=== PATIENT | male | born 1950 | race Caucasian/White ===

== ENCOUNTER → 2018-07-01 | Outpatient (REF) | payer BC ==
[2018-07-04 00:45] LABS: Lyme Disease IgG/IgM Antibodie <0.91 ISR (0.00-0.90); Lyme Disease IgM Ab Quantitati <0.80 index (0.00-0.79)
== END ==
LOC: M LAB REF 18:39
PROVIDERS: ATTEND Nurse Practitioner Family
DX: M79.10 Myalgia, unspecified site (principal)

== ENCOUNTER → 2020-11-29 | Outpatient (CLI) | payer MEDICARE ==
--- NOTE | 2020-11-29 15:42 | REPVR ---
PROCEDURE INFORMATION: Exam: MRA Neck Without Contrast Exam date and time: 11/29/2020 3:27 PM Age: 70 years old Clinical indication: Vertigo; Additional info: Vertigo, blurry vision TECHNIQUE: Imaging protocol: Magnetic resonance angiography of the neck without contrast. COMPARISON: No relevant prior studies available. FINDINGS: Right common carotid artery: No stenosis. No dissection or occlusion. Right internal carotid artery: No stenosis of the extracranial segment. No dissection or occlusion. Right external carotid artery: No stenosis. No dissection or occlusion of the origin. Right vertebral artery: Dominant. No stenosis. No dissection or occlusion. Left common carotid artery: No stenosis. No dissection or occlusion. Left internal carotid artery: No stenosis of the extracranial segment. No dissection or occlusion. Left external carotid artery: No stenosis. No dissection or occlusion of the origin. Left vertebral artery: Hypoplastic. IMPRESSION: No stenosis or occlusion. REFERENCES: NASCET CRITERIA. The degree of internal carotid artery stenosis is based on NASCET criteria. Normal is no stenosis. Mild is less than 50% stenosis. Moderate is 50-69% stenosis. Severe is 70% to 99% stenosis. Total occlusion is no detectable patent lumen. Electronically signed by: Mariola Chao On 11/29/2020 15:42:04 PM
--- NOTE | 2020-11-29 15:46 | REPVR ---
PROCEDURE INFORMATION: Exam: MR Head Without and With Contrast Exam date and time: 11/29/2020 3:27 PM Age: 70 years old Clinical indication: Dizziness; Additional info: Vertigo, blurry vision TECHNIQUE: Imaging protocol: MR of the head without and with intravenous contrast. Contrast material: PROHANCE; Contrast volume: 18 ml; Contrast route: INTRAVENOUS (IV); COMPARISON: No relevant prior studies available. FINDINGS: Brain: There is no restricted diffusion to suggest acute infarction. No acute intracranial hemorrhage or prior microhemorrhages. No significant white matter disease. No edema. No abnormal contrast enhancement in the brain parenchyma or leptomeninges. Cerebral ventricles: No ventriculomegaly. Bones/joints: Unremarkable. Paranasal sinuses: Normal as visualized. No acute sinusitis. Mastoid air cells: Normal as visualized. No mastoid effusion. Orbital cavity: Unremarkable. Soft tissues: Unremarkable. IMPRESSION: No acute cerebral infarction, intracranial hemorrhage, mass or abnormal contrast enhancement in the brain parenchyma or leptomeninges. Electronically signed by: Mariola Chao On 11/29/2020 15:46:30 PM
== END ==
LOC: M PLARAD 14:16
PROVIDERS: ATTEND Internal Medicine
DX: H81.4 Vertigo of central origin (principal); H53.8 Other visual disturbances

== ENCOUNTER → 2022-02-22 | Outpatient (REF) | payer MEDICARE | LOC: M LAB REF 11:30 | PROVIDERS: ATTEND Internal Medicine | DX: M10.071 Idiopathic gout, right ankle and foot (principal) ==

== ENCOUNTER 2023-09-25 08:29 | Day surgery (SDC) | payer MEDICARE ==
[~2023-09-25] VITALS: Ht 177.8 cm; Wt 93.1 kg
[~2023-09-25 08:29] MED LIST: ASPI81TA26 PO; IBUP200C27 PO; LISI20TA33 PO; MECL-86 PO; PRIL20TA2 PO; SIMV20TA22 PO
[2023-09-25] MEDS: NS 1,000 ML IV ONE (08:54)
[2023-09-25] MEDS ORDERED: propofoL 200 MG/20 ML VIAL As Ordered ONE (09:13)
[2023-09-25] MEDS ORDERED: LIDOCAINE 2% 100MG/5ML SDV (FOR ANES.) As Ordered ONE (09:13)
[2023-09-25 09:38] VITALS: TEMP 97.8
[2023-09-25 09:55] VITALS: BP 157/84; O2SAT 95
== END 2023-09-25 10:01 | disposition home or self-care (01) ==
LOC: M OPP 08:29
PROVIDERS: ATTEND Surgery
DX: Z86.010 Personal history of colon polyps (principal); D12.6 Benign neoplasm of colon, unspecified; Z87.891 Personal history of nicotine dependence; Z79.02 Long term (current) use of antithrombotics/antiplatelets; Z79.82 Long term (current) use of aspirin; Z79.899 Other long term (current) drug therapy

== ENCOUNTER → 2023-10-20 | Outpatient (REF) | payer MEDICARE | LOC: M LAB REF 12:22 | PROVIDERS: ATTEND Internal Medicine | DX: I10 Essential (primary) hypertension (principal) ==

== ENCOUNTER → 2025-02-23 | Outpatient (CLI) | payer MEDICARE | LOC: M WUC 08:45 | PROVIDERS: ATTEND Physician Assistant Medical | DX: M19.012 Primary osteoarthritis, left shoulder (principal) ==